=== PATIENT | female | born 1930 | race African-American/Black ===

== ENCOUNTER 2016-10-16 12:45 | Inpatient (IN) | payer OTHER ==
[~2016-10-16] VITALS: Ht 154.9 cm; Wt 58.5 kg
[~2016-10-16 12:45] MED LIST: LISINOPRIL5 MG ORAL; METFORMIN HCL500 M1 ORAL; PRAVASTATIN SOD10 M1 PO
[2016-10-16 13:06] VITALS: BP 165/58
[2016-10-16] MEDS ORDERED: Albuterol ud Inhalation HHN ONE (13:15)
[2016-10-16] MEDS ORDERED: Ipratropium 0.02% Inh Soln 2.5ml UD HHN ONE (13:15)
[2016-10-16 14:03] LABS: BASOPHILS % (AUTO) 0.8 % (0.0-2.0); EOSINOPHILS % (AUTO) 2.4 % (0.0-3.0); LYMPHOCYTES % (AUTO) 33.6 % (20.0-45.0); MEAN CORPUSCULAR HEMOGLOBIN 30.3 PG (27.0-31.0); MEAN CORPUSCULAR HGB CONC 31.9 G/DL (32.0-36.0); MEAN CORPUSCULAR VOLUME 95 FL (80-99); MEAN PLATELET VOLUME 8.1 FL (6.5-10.1); MONOCYTES % (AUTO) 7.7 % (1.0-10.0); NEUTROPHILS % (AUTO) 55.5 % (45.0-75.0); PLATELET COUNT 199 K/UL (150-450); RED BLOOD COUNT 3.65 M/UL (4.20-5.40); RED CELL DISTRIBUTION WIDTH 11.7 % (11.6-14.8); WHITE BLOOD COUNT 8.3 K/UL (4.8-10.8)
[2016-10-16 14:08] LABS: PROTHROMBIN TIME 10.5 SEC (9.30-11.50)
[2016-10-16 14:13] LABS: ALANINE AMINOTRANSFERASE 22 U/L (3-33); ANION GAP 17 (5-15); ASPARTATE AMINO TRANSFERASE 28 U/L (5-40); CALCIUM 9.4 mg/dL (8.6-10.2); CARBON DIOXIDE 24 mEQ/L (20-30); CHLORIDE 100 mEQ/L (98-107); CREATININE 1.7 mg/dL (0.5-0.9); HEMOLYSIS 6; POTASSIUM 4.2 mEQ/L (3.4-4.9); SODIUM 141 mEQ/L (135-145); TOTAL PROTEIN 7.1 g/dL (6.6-8.7); TROPONIN I < 0.30 ng/mL (<=0.30)
[2016-10-16 14:28] LABS: APPEARANCE,URINE CLEAR; KETONES,URINE NEGATIVE (NEGATIVE); LEUKOCYTE ESTERASE ,URINE NEGATIVE (NEGATIVE); NITRITE,URINE NEGATIVE (NEGATIVE); PH,URINE 5 (4.5-8.0); PROTEIN,URINE 1+ (NEGATIVE); UROBILINOGEN,URINE NORMAL MG/DL (0.0-1.0)
[2016-10-16 14:41] LABS: BACTERIA,URINE OCCASIONAL /HPF; RBC,URINE 0-2 /HPF (0 - 2); SQUAMOUS EPITHELIAL CELL,UR FEW /LPF (NONE/OCC)
--- NOTE | 2016-10-16 14:45 | Emergency Room Report ---
History of Present Illness General Chief Complaint: Dyspnea/Respdistress Source: Patient, Family Member, Medical Record Present Illness HPI Patient presents with weakness and shortness of breath. She's been not eating well. She also has some fleeting chest pains that are described as pressure and sharp. She reports to RN that the pain is more in her upper throat. Says denies any fevers or chills. She has generalized weakness. She has not taken her medications for one week. This is medicine for hypertension and diabetes. Apparently she lost his medicines on a train. She denies any vomiting or diarrhea. She feels nauseated. No rashes, headache. Some generalized joint pain. No localized weakness or numbness. She is depressed. Allergies: Coded Allergies: HYDROCODONE (Verified Allergy, Mild, 06/25/10) IODINE (Verified Allergy, Mild, 06/25/10) LOVASTATIN (Verified Allergy, Mild, 06/25/10) Patient History Past Medical History: see triage record Social History Narrative At home, son is in [place] Reviewed Nursing Documentation: PMH: Agreed, PSxH: Agreed Nursing Documentation-PMH Past Medical History: No History, Except For Hx Hypertension: Yes Hx Diabetes: Yes Review of Systems All Other Systems: negative except mentioned in HPI Physical Exam Vital Signs Date Time Temp Pulse Resp B/P Pulse Ox O2 Delivery O2 Flow Rate FiO2 10/16/16 13:01 97.3 64 24 165/58 100 Room Air Sp02 EP Interpretation: reviewed, normal General Appearance: well appearing, no apparent distress, GCS 15 Head: normocephalic Eyes: bilateral eye PERRL, bilateral eye normal inspection ENT: dry mucus membranes Neck: supple Respiratory: lungs clear, no respiratory distress, wheezing, expiration - minimal Cardiovascular #1: regular rate, rhythm Cardiovascular #2: 2+ radial (R) Gastrointestinal: normal bowel sounds, non tender, soft, no mass, no organomegaly Musculoskeletal: back normal, gait/station normal, normal range of motion 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 Off of meds for 1 week and not eating. Ddx : failure to thrive, pneumonia, bronchitis, flu, diabetes poor control, electrolyte abnormality, dehydration, low thyroid, depression amongst others. Non- focal neuro, CT not indicated. Appears dry and IV hydration ordered. Elevated glucose. Renal failure. Somewhat improved with IV hydration. Discussed with Dr. Chambers. Admit med. Discussed plan of care with son and daughter. Laboratory Tests Test 10/16/16 13:45 10/16/16 14:16 White Blood Count 8.3 K/UL (4.8-10.8) Red Blood Count 3.65 M/UL (4.20-5.40) L Hemoglobin 11.1 G/DL (12.0-16.0) L Hematocrit 34.8 % (37.0-47.0) L Mean Corpuscular Volume 95 FL (80-99) Mean Corpuscular Hemoglobin 30.3 PG (27.0-31.0) Mean Corpuscular Hemoglobin Concent 31.9 G/DL (32.0-36.0) L Red Cell Distribution Width 11.7 % (11.6-14.8) Platelet Count 199 K/UL (150-450) Mean Platelet Volume 8.1 FL (6.5-10.1) Neutrophils (%) (Auto) 55.5 % (45.0-75.0) Lymphocytes (%) (Auto) 33.6 % (20.0-45.0) Monocytes (%) (Auto) 7.7 % (1.0-10.0) Eosinophils (%) (Auto) 2.4 % (0.0-3.0) Basophils (%) (Auto) 0.8 % (0.0-2.0) Prothrombin Time 10.5 SEC (9.30-11.50) Prothrombin Time INR 1.0 (0.9-1.1) PTT 25 SEC (23-33) Sodium Level 141 mEQ/L (135-145) Potassium Level 4.2 mEQ/L (3.4-4.9) Chloride Level 100 mEQ/L (98-107) Carbon Dioxide Level 24 mEQ/L (20-30) Anion Gap 17 (5-15) H Blood Urea Nitrogen 17 mg/dL (7-23) Creatinine 1.7 mg/dL (0.5-0.9) H Estimate Glomerular Filtration Rate mL/min (>60) Glucose Level 308 mg/dL (74-106) H Lactic Acid Level 1.80 mmol/L (0.66-2.22) Calcium Level 9.4 mg/dL (8.6-10.2) Total Bilirubin 0.5 mg/dL (0.0-1.2) Aspartate Amino Transferase (AST) 28 U/L (5-40) Alanine Aminotransferase (ALT) 22 U/L (3-33) Alkaline Phosphatase 68 U/L (35-104) Total Creatine Kinase 189 U/L (26-140) H Troponin I < 0.30 ng/mL (<=0.30) Pro-B-Type Natriuretic Peptide 109 pg/mL (0-450) Total Protein 7.1 g/dL (6.6-8.7) Albumin 3.6 g/dL (3.5-5.2) Globulin 3.5 g/dL Albumin/Globulin Ratio 1.0 (1.0-2.7) Lipase 70 U/L (< 60) H Urine Color Pale yellow Urine Appearance Clear Urine pH 5 (4.5-8.0) Urine Specific [place] 1.005 (1.005-1.035) Urine Protein 1+ (NEGATIVE) H Urine Glucose (UA) 3+ (NEGATIVE) H Urine Ketones Negative (NEGATIVE) Urine Occult Blood 1+ (NEGATIVE) H Urine Nitrite Negative (NEGATIVE) Urine Bilirubin Negative (NEGATIVE) Urine Urobilinogen Normal MG/DL (0.0-1.0) Urine Leukocyte Esterase Negative (NEGATIVE) Urine RBC 0-2 /HPF (0 - 2) Urine WBC 2-4 /HPF (0 - 2) Urine Squamous Epithelial Cells Few /LPF (NONE/OCC) Urine Bacteria Occasional /HPF (NONE) Microbiology Date/Time Source Procedure Growth Status 10/16/16 15:10 Nasal Nares Influenza Types A,B Antigen (HUSSAIN) - Final Complete EKG Diagnostic Results Rate: normal Rhythm: NSR ST Segments: no acute changes Rhythm Strip Diag. Results EP Interpretation: yes Rhythm: NSR, no PVC's, no ectopy Chest X-Ray Diagnostic Results EP Interpretation: Yes Findings: no consolidation, no effusion, no pneumothorax, no acute cardiopulmonary disease Number of Views: 1 Last Vital Signs Date Time Temp Pulse Resp B/P Pulse Ox O2 Delivery O2 Flow Rate FiO2 10/16/16 20:14 97.9 80 16 132/50 100 Room Air Status: improved Disposition: ADMITTED INPATIENT Condition: Serious Referrals: LUISITO,REFERRING (PCP) Geraldo Sesay M.D. Oct 16, 2016 14:45
[2016-10-16 15:47] VITALS: BP 142/40
[2016-10-16 17:52] VITALS: BP 148/44
[2016-10-16] MEDS ORDERED: GLIPIZIDE5 MG ORAL (17:59)
[2016-10-16 20:14] VITALS: BP 132/50
[2016-10-16] MEDS: Heparin 5000 units/ml inj SUBQ SCH (21:15)
[2016-10-16] MEDS: NovoLOG Insulin Flexpen SUBQ SCH (21:33)
[2016-10-16] MEDS: DuoNeb 0.5-3(2.5)mg/3ml neb HHN SCH (23:00)
[2016-10-17] VITALS: BP 142/69
[2016-10-17] MEDS: DuoNeb 0.5-3(2.5)mg/3ml neb HHN SCH ×5 (03:49→19:18)
[2016-10-17 04:00] VITALS: BP 121/45
[2016-10-17] MEDS: NovoLOG Insulin Flexpen SUBQ SCH ×4 (06:29→21:10)
[2016-10-17 07:35] LABS: BASOPHILS % (AUTO) 1.1 % (0.0-2.0); EOSINOPHILS % (AUTO) 2.4 % (0.0-3.0); LYMPHOCYTES % (AUTO) 28.5 % (20.0-45.0); MEAN CORPUSCULAR HEMOGLOBIN 31.2 PG (27.0-31.0); MEAN CORPUSCULAR HGB CONC 32.5 G/DL (32.0-36.0); MEAN CORPUSCULAR VOLUME 96 FL (80-99); MEAN PLATELET VOLUME 8.1 FL (6.5-10.1); MONOCYTES % (AUTO) 7.3 % (1.0-10.0); NEUTROPHILS % (AUTO) 60.7 % (45.0-75.0); PLATELET COUNT 195 K/UL (150-450); RED BLOOD COUNT 3.33 M/UL (4.20-5.40); RED CELL DISTRIBUTION WIDTH 12.1 % (11.6-14.8)
[2016-10-17 08:00] VITALS: BP 127/57
[2016-10-17 08:12] LABS: ANION GAP 16 (5-15); CALCIUM 8.7 mg/dL (8.6-10.2); CARBON DIOXIDE 24 mEQ/L (20-30); CHLORIDE 105 mEQ/L (98-107); CREATININE 1.4 mg/dL (0.5-0.9); HEMOLYSIS 3; MAGNESIUM 1.6 mg/dL (1.7-2.5); POTASSIUM 3.5 mEQ/L (3.4-4.9); SODIUM 145 mEQ/L (135-145)
[2016-10-17] MEDS ORDERED: metFORMIN 500mg tab ORAL SCH (09:00)
[2016-10-17] MEDS ORDERED: Lisinopril 2.5mg tab ORAL SCH (09:00)
[2016-10-17] MEDS: guaiFENesin DM 100mg/5ml ORAL PRN ×2 (09:17→17:58)
[2016-10-17] MEDS: GlipiZIDE 5mg tab ORAL SCH ×2 (09:17→16:38)
[2016-10-17] MEDS: Heparin 5000 units/ml inj SUBQ SCH ×2 (09:18→21:10)
--- NOTE | 2016-10-17 10:25 | Diagnostic Imaging Report ---
Indication: COUGH Technique: XRAY CHEST 1 V. Comparison: 06/08/2013 Findings: The cardiomediastinal silhouette is stable. There are no acute infiltrates. Atherosclerotic changes noted in the aorta. No pleural fluid. Impression: No acute abnormality. No change from prior exam. .
[2016-10-17 12:00] VITALS: BP 132/49
[2016-10-17 18:28] VITALS: BP 128/70
--- NOTE | 2016-10-17 19:07 | History & Physical ---
History and Physical History & Physicial 10/16/16 #[id number] JOSEPH UMAÑA DO Oct 17, 2016 19:07
--- NOTE | 2016-10-17 19:10 | Discharge Summary ---
Discharge Summary Hospital Course Date of Admission Oct 16, 2016 at 19:48 Date of Discharge Admitting Diagnosis Weakness/ Hyperglycemia HPI Frederick N Bryan is a 86 year old female who was admitted on Oct 16, 2016 at 19: 48 for Weaknessl Hyperglycemia Hospital Course #[id number] DC summary Discharge Discharge Disposition Patient was discharged to Discharge Diagnoses: JOSEPH UMAÑA DO Oct 17, 2016 19:10
[2016-10-17] MEDS ORDERED: HEPARIN SO5000 UNIT2 SUBQ (19:22)
[2016-10-17] MEDS ORDERED: TYLENOL650 MG/20. ORAL (19:22)
[2016-10-17] MEDS ORDERED: GUAIFENESIN-CO118 M1 ORAL (19:22)
[2016-10-17] MEDS ORDERED: DUONEB 0.5-3(2.53 ML HHN (19:23)
[2016-10-17] MEDS ORDERED: NOVOLOG100 UNIT/3 SUBQ (19:24)
[2016-10-17 20:00] VITALS: BP 126/57
--- NOTE | 2016-10-18 00:39 | History and Physical Report ---
DATE OF ADMISSION: 10/16/2016 REASON FOR ADMISSION: Weakness and shortness of breath. HISTORY OF PRESENT ILLNESS: This is an 86-year-old female, who states that she has been not feeling well for the past month. She states she was in [place] and had to come back due to increasing shortness of breath and weakness. She said she ran out of her medications approximately three weeks ago including her diabetes and hypertensive medications and has not taken any medications for three weeks. When asked why she did not ask her primary physician for a refill, she states that she has been taking care of her great grandson who is approximately two years old, but came to the point of becoming so weak with decreased oral intake and dizziness, although denies any fall. She came into the emergency room, found to have a significant dehydration, renal insufficiency, and poorly controlled diabetes as well. She does indicate that she has had some chest pain that she feel is mostly from coughing. She has had some clear phlegm production, but no hemoptysis or purulent phlegm has been noted. She denies any fever or chills. No evidence of nausea or vomiting, and no falls as noted. PAST MEDICAL HISTORY: Diabetes and hypertension. SOCIAL HISTORY: Negative for tobacco, alcohol, and drugs. FAMILY HISTORY: Noncontributory. MEDICATIONS: Her prehospital medications have been reviewed and reconciled. ALLERGIES: She has no known drug allergies. SURGICAL HISTORY: Negative. PHYSICAL EXAMINATION: GENERAL: At the time of my exam, she is alert. She is oriented, seen in the emergency room, in no acute respiratory distress. VITAL SIGNS: She is afebrile. Her pulse is 85, respirations 18, and blood pressure 132/96. She is 96% on room air. HEENT: She is normocephalic and atraumatic. NECK: Supple without lymphadenopathy. Her neck is without any stridor. LUNGS: Decreased at the bases. No wheezes present. HEART: Regular rhythm without murmur. ABDOMEN: Soft and nontender. Positive bowel sounds. EXTREMITIES: No edema. NEUROLOGIC: She has no focal neurologic deficits are present. SKIN: No skin rashes, wounds, or lesions are present. PSYCHIATRIC: Her affect is appropriate. LABORATORY DATA: White count is 8.3, hemoglobin 11.1, and platelets 199,000. Her sodium is 141, potassium 4.2, chloride 100, bicarb 24, BUN 17, and creatinine 1.7. Glucose is 308. Her CK was 189. Her troponin was negative. Her MPA was 109. Lipase was drawn, which was 70, which is minimally elevated above baseline. Her urinalysis was negative for leukocyte esterase. Her INR was 1. Chest x-ray was performed in the emergency room, which was negative. EKG was not performed in the emergency room. Her influenza screen was obtained, which was negative for influenza A and B. ASSESSMENT: 1. Diabetes. 2. Hypertension. 3. Renal insufficiency with dehydration. 4. Mildly elevated lipase. 5. Shortness of breath. 6. Hypercholesterolemia. PLAN: Plan for the patient, she will be admitted, placed on intravenous fluids and monitored closely. Glycemic control with sliding scale will be added to the patient's regimen. DVT prophylaxis. We will follow her cultures and if there is any indication of infection then antibiotics will be started. At this point, there is no indication of urinary tract infection and her chest x-ray is negative for possible underlying pneumonia. Aspiration precautions at all times and a diabetic diet, and we will transfer the patient to [facility] when a bed is available. Josseline Mora D.O. : TALAT JOB#: [id number] CC:
--- NOTE | 2016-10-18 07:48 | Discharge Summary ---
DATE OF ADMISSION: 10/16/2016 DATE OF DISCHARGE: 10/17/2016 REASON FOR ADMISSION: Renal insufficiency, dehydration, dizziness, and cough. HOSPITAL COURSE: The patient was admitted. She was placed on intravenous fluids. Cultures were obtained, which were negative. She had no further chest pain. A Arriola catheter was placed. She has had good urine output. She initially came in with a creatinine of 1.7 and upon administration of intravenous fluids, her creatinine did decrease to 1.4. Her glucose is 308 when admitted and was down to 117. On her morning laboratories, magnesium was slightly reduced to 1.6. LFTs were not obtained. At this time, the patient has been without any chest pain. She has had some cough without purulent phlegm. No nausea, vomiting, or diarrhea has been noted. At the time of her discharge, she is awake and alert. She is no acute distress. She is afebrile. Her pulse is 72, blood pressure 128/70, and she is 99% on room air. She is normocephalic and atraumatic. Nonicteric. Nasal mucosa is moist. Oropharynx is moist. Neck is supple without any stridor. Lungs are decreased at bases. No wheeze present. Heart is regular rhythm without a murmur. Abdomen is soft. Mild epigastric tenderness is noted. Extremities are without any edema. She has no focal neurologic deficits. Skin rashes, wounds, or lesions are present. No new chest x-ray. Today, no new cultures are obtained from admission. DISCHARGE DIAGNOSES: 1. Renal insufficiency. 2. Dehydration. 3. Noncompliance with patient's medications for last upon her travel to [place]. 4. History of diabetes. 5. Hypertension. 6. Hyperlipidemia and mildly elevated lipase. DISCHARGE PLAN: The patient's primary insurance at [facility] has requested her to be transferred to a Contracted Hospital and she is being transferred in stable condition to the facility for remaining care and treatment. Josseline Mora D.O. DR: SAROJ JOB#: [id number] CC:
--- NOTE | 2016-10-18 15:04 | Cardiology Report ---
APPROVED REPORT EKG Measurement Heart [id number] Normal sinus rhythm Normal ECG
--- NOTE | 2016-10-20 22:50 | Diagnostic Imaging Report ---
APPROVED REPORT CPT Code: 98851 Present Symptoms Lower Extremity Pain: Bilateral BILATERAL: Imaging reveals a patent deep venous system bilaterally. There is no evidence of thrombus within the femoral, popliteal or tibial segments. The greater saphenous veins are also within normal limits. Doppler indicates normal spontaneous flow within these segments.
== END 2016-10-17 21:25 | disposition short-term general hospital (02) | DRG 641 ==
LOC: EMR 14:05 → EDBEDREQ 18:35 → 4W 19:48
DX: E86.0 Dehydration (principal); E11.65 Type 2 diabetes mellitus with hyperglycemia; N28.9 Disorder of kidney and ureter, unspecified; Z91.14 Patient's other noncompliance with medication regimen; I10 Essential (primary) hypertension; E78.5 Hyperlipidemia, unspecified; R42 Dizziness and giddiness; R06.02 Shortness of breath
CPT/HCPCS: 36415; 71010; 80048; 80053; 81003; 82550; 82962; 83605; 83690; 83735; 83880; 84484; 85025; 85610; 85730; 86710; 87040; 93005; 93970; 94640; 94664; J1815; J7620

== ENCOUNTER → 2019-01-12 | Emergency (ER) | payer OTHER ==
[~2019-01-12] VITALS: Ht 157.5 cm; Wt 68.0 kg
[~2019-01-12] MED LIST changes: +Acetaminophen 500mg (ES) tab ORAL ONE; +DUONEB 0.5-3(2.53 ML HHN; +GLIPIZIDE5 MG ORAL; +GUAIFENESIN-CO118 M1 ORAL; +HEPARIN SO5000 UNIT2 SUBQ; +NOVOLOG100 UNIT/3 SUBQ; +TYLENOL EXTRA500 MG ORAL; +TYLENOL650 MG/20. ORAL
--- NOTE | 2019-01-12 01:58 | NUR ---
ED Nurse Note: Pt fall in her front yard 7 hours ago and injured her R wrist. Pt is AO x 4times, VSS, on room air no distress. EDY seen Pt at bedside.
[2019-01-12 02:00] VITALS: BP 147/64
--- NOTE | 2019-01-12 03:52 | NUR ---
ED Nurse Note: Pt resting in bed, non-labored breathing, will continue to monitor.
[2019-01-12 03:53] VITALS: BP 147/64
--- NOTE | 2019-01-12 05:00 | NUR ---
ER DISCHARGE NOTE: Patient is cleared to be discharged per ERMD, pt is aox4, on room air, with stable vital signs. pt was given dc and prescription instructions, pt was able to verbalize understanding, pt id band removed. pt is able to ambulate with steady gait. pt took all belongings.
--- NOTE | 2019-01-12 05:55 | NUR ---
ED Nurse Note: Pt had arrived by paramedics with her minor great grandson (she has custody; no one else at home). She had spoken to her daughter, an arrangement for the pt's adult grandson (uncle to the minor) to come to the hospital. At time of discharge, the uncle and the minor are not in the ER, nor on the property. Pt's great grandmother is distraut - [employer] called, spoke with [employer] [id number].
--- NOTE | 2019-01-12 06:08 | NUR ---
ED Nurse Note: GABY here - Officer Avi ([id number]). And the adult grandson just called, concerned about his phone. He states he is at [facility] with the minor, who fell. [facility] called, spoke with Socorro, charge nurse, and asked to hold the minor, until GABY gets there. She confirms the the two have been , and she will not discharge the patient.
--- NOTE | 2019-01-12 17:49 | Diagnostic Imaging Report ---
Indications: Right forearm pain after falling Technique: Two views of the right forearm Comparison: None Findings: No acute fractures. No dislocations. No radiopaque foreign body Impression: Negative
--- NOTE | 2019-01-12 17:49 | Diagnostic Imaging Report ---
Indications:Elbow pain Technique: Three or 4 views of the right elbow Comparison: None Findings: Positioning is markedly suboptimal. Lateral view not true lateral view, so joint effusion not excludable. Poor visualization of the radial head precludes exclusion of radial head fracture although no gross radial head fracture demonstrated. Impression: Very limited essentially nondiagnostic exam. No gross acute pathology demonstrated.
--- NOTE | 2019-01-12 17:49 | Diagnostic Imaging Report ---
Clinical Indication:Right wrist pain after falling Technique: 3 views of the right wrist Comparison: None Findings: No acute fractures. No dislocations. The joint spaces are preserved Impression: Negative
--- NOTE | 2019-01-12 17:49 | Diagnostic Imaging Report ---
Indication: Right shoulder pain after falling Technique: 3 views of the right shoulder Comparison: none Findings: No acute fractures. No dislocations. The joint spaces are preserved. The bones are osteoporotic Impression: Negative
--- NOTE | 2019-01-12 21:38 | Emergency Room Report ---
History of Present Illness General Chief Complaint: Upper Extremity Injury Source: Patient Present Illness HPI 88-year-old female presents ED for evaluation. Patient brought in by EMS. States that she had a mechanical trip and fall today her house. Landed on her right side. Complaining of right shoulder arm and wrist pain. Denies hitting her head or LOC. Pain is throbbing, 8 out of 10, nonradiating. Denies any other injuries. No other aggravating relieving factors. Denies any other associated symptoms Allergies: Coded Allergies: HYDROCODONE (Verified Allergy, Mild, 06/25/10) IODINE (Verified Allergy, Mild, 06/25/10) LOVASTATIN (Verified Allergy, Mild, 06/25/10) Patient History Past Medical History: HTN, COPD Past Surgical History: none Pertinent Family History: none Social History: Denies: smoking, alcohol use, drug use Now: No Immunizations: UTD Reviewed Nursing Documentation: PMH: Agreed; PSxH: Agreed Nursing Documentation-PMH Hx Cardiac Problems: Yes Hx Hypertension: Yes Hx Diabetes: Yes Hx Cancer: No Hx Gastrointestinal Problems: No Hx Neurological Problems: No Review of Systems All Other Systems: negative except mentioned in HPI Physical Exam Vital Signs Date Time Temp Pulse Resp B/P (MAP) Pulse Ox O2 Delivery O2 Flow Rate FiO2 01/12/19 01:49 98.2 57 18 159/64 (95) 99 Room Air Sp02 EP Interpretation: reviewed, normal General Appearance: no apparent distress, alert, GCS 15, non-toxic Head: normocephalic, atraumatic Eyes: bilateral eye normal inspection, bilateral eye PERRL ENT: hearing grossly normal, normal pharynx, no angioedema, normal voice Neck: full range of motion, supple/symm/no masses Respiratory: chest non-tender, lungs clear, normal breath sounds, speaking full sentences Cardiovascular #1: regular rate, rhythm, no edema Cardiovascular #2: 2+ carotid (R), 2+ carotid (L), 2+ radial (R), 2+ radial (L) , 2+ dorsalis pedis (R), 2+ dorsalis pedis (L) Gastrointestinal: normal bowel sounds, non tender, soft, non-distended, no guarding, no rebound Rectal: deferred Genitourinary: normal inspection, no CVA tenderness Musculoskeletal: back normal, gait/station normal, normal range of motion, tender - RUE, R wrist Neurologic: alert, oriented x3, responsive, motor strength/tone normal, sensory intact, speech normal Psychiatric: judgement/insight normal, memory normal, mood/affect normal, no suicidal/homicidal ideation Reflexes: 3+ bicep (R), 3+ bicep (L), 3+ tricep (R), 3+ tricep (L), 3+ knee (R) , 3+ knee (L) Skin: normal color, no rash, warm/dry, well hydrated Lymphatic: no adenopathy Procedures Splinting Splinting : Consent: Verbal Pre-Made Type: velcro Splint: wrist Pre-Proc Neuro Vasc Exam: normal Post-Proc Neuro Vasc Exam: normal Patient Tolerated: Well Complications: None Medical Decision Making Diagnostic Impression: Primary Impression: Wrist injury Qualified Codes: S69.91XA - Unspecified injury of right wrist, hand and finger (s), initial encounter Additional Impression: Injury of right upper extremity Qualified Codes: S49.91XA - Unspecified injury of right shoulder and upper arm , initial encounter ER Course Hospital Course 88 yo F presents to ED c/o RUE pain s/p fall Differential diagnoses include: Fracture, dislocation, sprain, contusion Clinical course Patient placed on stretcher. After initial history and physical, I ordered pain medications and Xrays of R shoulder, elbow, forearm and wrist Xrays prelim read shows no acute fracture/dislocation. placed in gissell wrap, wrist splint discussed findings with patient. Safe for discharge for close outpatient follow -up. 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 Patient called her grandson to pear picker the patient but then he left with the patient against her permission. The PD was notified and they were able to locate the great-grandson and reunite with the patient Diagnosis -wrist injury, injury of right upper extremity Stable and discharged to home with prescription for tylenol. apply ice, keep elevated. weight bear as tolerated. Followup with PMD/ortho. Return to ED if symptoms recur or worsen Other X-Ray Diagnostic Results Other X-Ray Diagnostic Results #1: X-Ray ordered: R shoulder # of Views/Limited Vs Complete: 3 View Indication: Pain EP Interpretation: Yes Interpretation: no dislocation, no soft tissue swelling, no fractures Impression: No acute disease Electronically Signed by: Electronically signed by Tao Yu MD he had a seriousness of Other X-Ray Diagnostic Results #2: X-Ray ordered: Right elbow # of Views/Limited Vs Complete: 3 View Indication: Pain EP Interpretation: Yes Interpretation: no dislocation, no soft tissue swelling, no fractures Impression: No acute disease Electronically Signed by: Electronically signed by Tao Yu MD Other X-Ray Diagnostic Results #3: X-Ray ordered: R forearm # of Views/Limited Vs Complete: 2 View Indication: Pain EP Interpretation: Yes Interpretation: no dislocation, no soft tissue swelling, no fractures Impression: No acute disease Electronically Signed by: Electronically signed by Tao Yu MD Other X-Ray Diagnostic Results #4: X-Ray ordered: R wrist # of Views/Limited Vs Complete: 3 View Indication: Pain EP Interpretation: Yes Interpretation: no dislocation, no soft tissue swelling, no fractures Impression: No acute disease Electronically Signed by: Electronically signed by Tao Yu MD Last Vital Signs Date Time Temp Pulse Resp B/P (MAP) Pulse Ox O2 Delivery O2 Flow Rate FiO2 01/12/19 03:53 98.4 78 18 147/64 99 Room Air Disposition: HOME, SELF-CARE Condition: Stable Scripts Acetaminophen* (TYLENOL EXTRA STRENGTH*) 500 Mg Tablet 500 MG ORAL Q8H PRN for Prn Headache/Temp > 101, #30 TAB 0 Refills Prov: Tao Yu MD 01/12/19 Referrals: Jaqu[facility] Open 24 hour /7 days a week by Appointment Only [address] [place] [id number] Patient Instructions: Wrist Pain, [id number] Tao Yu MD Jan 12, 2019 21:38
== END | disposition home or self-care (01) ==
LOC: EDBD 01:46 → EDUNIT# 01:46 → EMR 04:20
DX: S69.91XA Unspecified injury of right wrist, hand and finger(s), initial encounter (principal); S49.91XA Unspecified injury of right shoulder and upper arm, initial encounter; W01.0XXA Fall on same level from slipping, tripping and stumbling without subsequent striking against object, initial encounter; Y92.9 Unspecified place or not applicable; E11.9 Type 2 diabetes mellitus without complications; I10 Essential (primary) hypertension; J44.9 Chronic obstructive pulmonary disease, unspecified
CPT/HCPCS: 29125; 99284